=== PATIENT | female | born 1980 | race Caucasian/White ===

== ENCOUNTER 2021-11-05 21:22 | Inpatient (IN) ==
[2021-11-05] MEDS ORDERED: ONDANSETRON 4 MG/2 ML VIAL IV PRN (22:17)
[2021-11-05] MEDS ORDERED: MEPERIDINE 50 MG/1 ML VIAL IV PRN (22:17)
[2021-11-05] MEDS ORDERED: BUTORPHANOL 2 MG/ML VIAL IV PRN (22:17)
[2021-11-05 22:36] LABS: Basophils % 0.3 % (0.0-0.8); Eosinophils # 0.1 10*3/uL (0.0-0.87); Eosinophils % 0.5 % (0.00-10.9); Hematocrit 35.1 VOL% (35.7-47.0); Hemoglobin 10.9 GM/DL (12.0-16.0); Lymphocytes # 1.5 10*3/uL (1.4-4.0); Lymphocytes % 15.1 % (21.3-54.2); Mean Corpuscular HGB Conc 31.1 GM/DL (32-36); Mean Corpuscular Volume 84.2 FL (87-102); Mean Platelet Volume 11.1 FL (9.6-12.0); Monocytes % 4.3 % (1.7-12.7); Neutrophils % 77.8 % (38.7-73.9); Platelet Count 215 T/CUMM (130-400); Red Blood Count 4.17 MC/CUMM (3.8-5.5); Red Cell Distribution Width 18.6 % (9.3-17.3); White Blood Count 10.1 T/CUMM (4-12)
[2021-11-06] MEDS: LACTATED RINGERS 1,000 ML IV SCH ×2 (06:09→11:49)
[2021-11-06] MEDS ORDERED: LACTATED RINGERS 500 ML IV ONE (07:35)
[2021-11-06] MEDS ORDERED: diphenhydrAMINE 50 MG/1 ML VIAL IV PRN ×2 (07:35)
[2021-11-06] MEDS ORDERED: PROMETHAZINE 25 MG/1 ML VIAL IM ONE (07:35)
[2021-11-06] MEDS ORDERED: CITRIC ACID/SODIUM CITRATE 30 ML UDCUP PO ONE (07:35)
[2021-11-06] MEDS ORDERED: FAMOTIDINE 20 MG/2 ML VIAL IV ONE (07:35)
[2021-11-06] MEDS ORDERED: NALOXONE 0.4 MG/ML VIAL IV PRN (07:35)
[2021-11-06] MEDS ORDERED: ONDANSETRON 4 MG/2 ML VIAL IV ONE (07:35)
[2021-11-06] MEDS ORDERED: ePHEDrine 50 MG/ML VIAL IV PRN (07:35)
[2021-11-06] MEDS ORDERED: hydrOXYzine HCL 25 MG/1 ML VIAL IM PRN (07:35)
[2021-11-06] MEDS ORDERED: fentaNYL 2 MCG/ROPIV 0.2% EPID 100 ML EPIDURAL SCH (08:00)
[2021-11-06] MEDS ORDERED: OXYTOCIN/LR 20 UNIT/1,000 ML BAG IV SCH (08:13)
[2021-11-06 11:04] LABS: Bilirubin,Urine Negative (Negative); Blood, Urine Negative (Negative); Glucose,Urine (UA) Negative (Negative); Ketones,Urine 20 mg/dL (Negative); Mucus,Urine Occasional /LPF (Occasional); Nitrite,Urine Negative (Negative); Protein,Urine Negative; RBC,Urine 2 /HPF (0-4); Squamous Epithelial Cell,Urine Occasional /HPF (0-10); Urine Appearance CLEAR (Clear); Urine Color Yellow (Yellow); Urine Urobilinogen < 2.0 EU/DL (<2.0)
[2021-11-06] MEDS ORDERED: miSOPROStoL 200 MCG TABLET ONE (12:59)
[2021-11-06] MEDS ORDERED: SODIUM CHLORIDE 0.9% 0 ML IV ONE (13:00)
[2021-11-06] MEDS ORDERED: METHYLERGONOVINE 0.2 MG/1 ML AMP ONE (13:00)
[2021-11-06] MEDS ORDERED: CARBOPROST TROMETHAMINE 250 MCG/ML AMP IM ONE (13:00)
[2021-11-06] MEDS ORDERED: TRANEXAMIC ACID 1,000 MG/10 ML VIAL ONE (13:00)
[2021-11-06 15:06] LABS: Cord Arterial Blood HCO3 26.7 MMOL/L
[2021-11-06 15:09] LABS: Cord Venous Blood HCO3 22.6 MMOL/L; Cord Venous Blood PCO2 40.1 MMHG; Cord Venous Blood PO2 22.7 MMHG
[2021-11-06] MEDS ORDERED: oxyCODONE/ACETAMINOPHEN 5-325 MG TABLET PO PRN (16:04)
[2021-11-06] MEDS ORDERED: BENZOCAINE 20%/MENTHOL 0.5% SPRAY 56 GM CAN TOP PRN (16:04)
[2021-11-06] MEDS ORDERED: WITCH HAZEL PADS 100/JAR TOP PRN (16:04)
[2021-11-06] MEDS ORDERED: OXYTOCIN/LR 20 UNIT/1,000 ML BAG IV ONE (16:04)
[2021-11-06] MEDS ORDERED: HYDROCORTISONE 2.5% RECTAL CREAM 30 GM TUBE TOP PRN (16:04)
[2021-11-06] MEDS ORDERED: LANOLIN 50% CREAM 0.3 OZ TUBE TOP PRN (16:04)
[2021-11-06] MEDS ORDERED: ACETAMINOPHEN 325 MG TABLET PO PRN (16:04)
[2021-11-06] MEDS ORDERED: BISACODYL 10 MG SUPP RECTAL PRN (16:04)
[2021-11-06] MEDS: IBUPROFEN 800 MG TABLET PO PRN (19:48)
[2021-11-06] MEDS: DOCUSATE SODIUM 100 MG CAPSULE PO SCH (21:10)
[2021-11-06] MEDS: oxyCODONE/ACETAMINOPHEN 5-325 MG TABLET PO PRN (23:20)
[2021-11-07] MEDS: IBUPROFEN 800 MG TABLET PO PRN ×3 (03:03→17:29)
[2021-11-07 05:13] LABS: Basophils % 0.3 % (0.0-0.8); Eosinophils # 0.1 10*3/uL (0.0-0.87); Hematocrit 31.7 VOL% (35.7-47.0); Immature Granulocytes % 1.7 %; Immature Granulocytes Absolute 0.21 #; Lymphocytes # 1.8 10*3/uL (1.4-4.0); Lymphocytes % 14.6 % (21.3-54.2); Mean Corpuscular HGB Conc 31.5 GM/DL (32-36); Mean Corpuscular Volume 85.4 FL (87-102); Mean Platelet Volume 11.5 FL (9.6-12.0); Monocytes % 6.4 % (1.7-12.7); NRBC # 0.03 10*3/uL; Platelet Count 199 T/CUMM (130-400); Red Blood Count 3.71 MC/CUMM (3.8-5.5); Red Cell Distribution Width 18.3 % (9.3-17.3); White Blood Count 12.5 T/CUMM (4-12)
[2021-11-07] MEDS: oxyCODONE/ACETAMINOPHEN 5-325 MG TABLET PO PRN ×2 (05:23→20:55)
[2021-11-07] MEDS: DOCUSATE SODIUM 100 MG CAPSULE PO SCH ×2 (08:48→20:50)
[2021-11-07] MEDS: MULTIVITAMIN (PRENATAL) TABLET PO SCH (08:48)
[2021-11-08] MEDS: oxyCODONE/ACETAMINOPHEN 5-325 MG TABLET PO PRN (06:11)
[2021-11-08] MEDS: MULTIVITAMIN (PRENATAL) TABLET PO SCH (08:27)
[2021-11-08] MEDS: DOCUSATE SODIUM 100 MG CAPSULE PO SCH (08:27)
[2021-11-08 09:50] VITALS: BP 127/78
[2021-11-08] MEDS: IBUPROFEN 800 MG TABLET PO PRN (09:57)
== END 2021-11-08 11:00 | disposition home or self-care (01) | DRG 807 ==
LOC: N.LDOUT 21:22 → N.LD 21:26 → N.OB 11-06 18:00
PROVIDERS: ADMIT Specialist; ATTEND Specialist